=== PATIENT | female | born 1940 | race Caucasian/White ===

== ENCOUNTER 2017-07-20 10:05 | Outpatient (CLI) | payer MEDICARE ==
[~2017-07-20] VITALS: Ht 157.5 cm; Wt 84.4 kg
[~2017-07-20 10:05] MED LIST: AMLO5TAB2 PO; CITA10TA4 PO; CITA20TA9 PO; DOCU-109 PO; GABA-587 PO; GABA600T2 PO; LISI40TA PO; OXYC-327 PO; OXYC10TA45 PO; POTASSIUM CHLO10 MEQ PO; SUCR1TAB PO
[2017-07-20 11:02] LABS: BASO % 1 % (0-3); EOS % 2 % (0-3); HEMATOCRIT 31.8 % (36.0-47.0); LYMPH # 1.1 x10^3/uL (1.0-4.8); LYMPH % 22 % (24-48); MEAN CORPUSCULAR HEMOGLOBIN 25 pg (25-35); MEAN CORPUSCULAR HGB CONC 31 g/dL (31-37); MEAN CORPUSCULAR VOLUME 79 fL (79-100); MONO % 8 % (0-9); NEUT % 67 % (31-73); PLATELET COUNT 242 x10^3/uL (140-400); RED BLOOD COUNT 4.02 x10^6/uL (3.50-5.40); RED CELL DISTRIBUTION WIDTH 14.4 % (11.5-14.5); WHITE BLOOD COUNT 4.9 x10^3/uL (4.0-11.0)
[2017-07-20 11:18] LABS: PROTHROMBIN TIME PATIENT 12.5 SEC (11.7-14.0)
[2017-07-20 11:22] VITALS: BP 123/74
[2017-07-20] MEDS ORDERED: ASPI325T8 PO (11:29)
[2017-07-20] MEDS ORDERED: POLY17PO29 PO (11:29)
[2017-07-20] MEDS ORDERED: TRAM50TA PO (11:29)
[2017-07-20] MEDS ORDERED: IOHEXOL 300 MG/ML 100ML VIAL. ONE (11:56)
[2017-07-20] MEDS ORDERED: LIDOCAINE 1% / SOD BICARB 8.4% 20 ML VIAL. IJ ONE ×2 (11:56→12:30)
[2017-07-20 12:12] LABS: CALCIUM 9.1 mg/dL (8.5-10.1); CREATININE 0.6 mg/dL (0.6-1.0); GFR 96.9; POTASSIUM 4.8 mmol/L (3.5-5.1)
[2017-07-20] MEDS ORDERED: IOHEXOL 300 MG/ML 100ML VIAL. IART ONE (12:30)
[2017-07-20 12:43] VITALS: BP 142/70
[2017-07-20 13:00] VITALS: BP 136/72
--- NOTE | 2017-07-20 13:49 | RAD ---
IVC filter placement Indication: Deep venous thrombosis. Multiple medical comorbidities with frequent falls and subsequent contraindication to anticoagulation. Discussion: The risks and benefits were discussed the patient's guest relations representative. Informed consent was obtained. Timeout procedure was performed. The right neck was prepped and draped using maximum sterile barrier technique. The right internal jugular vein was accessed using micropuncture needle and ultrasound guidewire was advanced into the inferior vena cava. This is exchanged A Sheath was advanced into the inferior vena cava. The micropuncture sheath was exchanged for a filter delivery sheath. A venogram was performed demonstrating no caval thrombosis. Renal vein inflow was identified. A [id number] IVC filter was deployed below the renal veins within the IVC. Repeat cavogram was obtained. No immediate complications are identified. The sheath was removed and manual pressure held to achieve hemostasis. Sterile dressing was applied. Fluoroscopy time 1.9 minutes Dose area product 49 gcm2 Anesthesia: Local only Impression: Placement of a inferior vena cava filter
== END 2017-07-20 13:25 ==
LOC: INTRAD 10:05
PROVIDERS: ATTEND Internal Medicine
DX: I82.409 Acute embolism and thrombosis of unspecified deep veins of unspecified lower extremity (principal); G62.9 Polyneuropathy, unspecified; J44.9 Chronic obstructive pulmonary disease, unspecified; F32.9 Major depressive disorder, single episode, unspecified; Z87.39 Personal history of other diseases of the musculoskeletal system and connective tissue; Z86.69 Personal history of other diseases of the nervous system and sense organs; Z88.6 Allergy status to analgesic agent; Z90.710 Acquired absence of both cervix and uterus; Z86.14 Personal history of Methicillin resistant Staphylococcus aureus infection; Z96.651 Presence of right artificial knee joint; Z86.73 Personal history of transient ischemic attack (TIA), and cerebral infarction without residual deficits
CPT/HCPCS: 36415; 37191; 76937; 80048; 85025; 85610; C1769; C1892; J1644; Q9967